=== PATIENT | female | born 1970 | race Caucasian/White ===

== ENCOUNTER 2025-02-14 09:03 | Outpatient (AMB) | payer OTHER, SELFPAY ==
--- NOTE | 2025-02-14 09:09 | MHC.PC.OV ---
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 Regenerator Operator Required: Yes Regenerator Operator Language: Urdu Accompanied by: Self / Same As Patient Allergies No Known Allergies Allergy (Verified 02/14/25 09:12) Tobacco use date assessed: 02/14/25 Dental Screening Dental Screen Date: 02/14/25 Did you have a dental visit in the last 12 months?: No Did you have a dental problem in the last 6 months where you did not have access to dental care?: No Was dental information given to patient?: No HPI HPI Comments History of Present Illness Details History of Present Illness The patient is a 54 year old female presenting with concerns of high blood pressure and heart pain. Cardiac Complaints: The patient reports long-standing concerns regarding her heart, including hypertension, heart pain, chest pain, and difficulty breathing. She experiences difficulty with exertion, such as walking, and reports that her heart races when she walks. She is on unspecified medications for her blood pressure and heart. A prior cardiac catheterization was reportedly normal, but she was told her heartbeats are not good. 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 Peripheral Artery Disease: Approximately four years ago, the patient underwent a scan of her legs and feet which reportedly revealed a blockage in the main artery. Following this finding, she was prescribed special shoes or socks. Chronic Musculoskeletal Pain: The patient has multiple chronic pain issues. She reports severe hand pain that disrupts her sleep. She has pain in both knees and hears cracks, consistent with osteoarthritis. She had a prior surgery on her right knee and was advised to have surgery on her left knee, which was not done due to insurance issues. She also has lower back pain, which has become more painful this year. Dizziness: The patient reports episodes of dizziness, which occur sometimes when she gets up or is going to sleep. These episodes are not associated with palpitations or shortness of breath. Surgical History: - Hysterectomy, approximately 3 years ago. - Right knee surgery. Medications: - Unspecified medication for blood pressure. - Unspecified medication for a heart condition. - she does not remember her medications Social History: - Tobacco use: Denies smoking. - Alcohol use: Denies drinking. - Illicit substance use: Denies drug use. - Sleep: Reports difficulty sleeping due to pain. Family History: No family history was discussed. Diagnostic Results: - Cardiac catheterization (past): Reported as normal. - Leg/foot scan (4 years ago): Showed a blocked main artery. Past Medical History - Hypertension, on medication. - Unspecified cardiac condition with arrhythmia, on medication. - Peripheral artery disease, diagnosed approximately 4 years ago. - Osteoarthritis of bilateral knees. - Chronic hand pain. - Chronic low back pain. - History of hysterectomy. - History of right knee surgery. - Denies prior hospitalizations. Health Maintenance - Mammogram: Last performed 3 months ago; patient reports she was instructed to get one every 6 months. - Cervical cancer screening: Not indicated due to history of hysterectomy. - Colon cancer screening: Patient has had a colonoscopy and reports she was told to repeat it every 5 years; she believes she is up to date. [facility] Medical History (Updated 02/14/25 @ 10:09 by Sudeep Silva MD) Knee crepitus Hypertension Chronic knee pain Osteoarthritis Dizziness Musculoskeletal pain PAD (peripheral artery disease) Cardiac complaint Screening for malignant neoplasm of cervix Surgical History (Updated 02/14/25 @ 10:09 by Sudeep Silva MD) H/O cardiac catheterization H/O: hysterectomy Social History Housing: Apartment Alcohol intake: never Patient Tobacco Use Status: Never used Tobacco e-Cigarette/Vaping Use: Never Used Second Hand Smoke Exposure: No service: No Current occupational status: unemployed Cognitive needs: No Hearing needs: No Vision needs: No Questionnaire Thrive Questionnaire Date Thrive assessed: 02/14/25 I am a: Patient What is your living situation today?: I have a steady place to live Within the past 12 months, did the food you bought not last and you didn't have the money to get more?: Sometimes True Within the past 12 months, did you worry whether your food would run out before you got money to buy more?: Sometimes True Do you have trouble paying for medicines?: Yes Do you have trouble getting transportation to medical appointments?: Yes Do you have trouble paying your heating and electricity bill?: Yes Do you have trouble taking care of your child, family member or friend?: Yes Do you have trouble with day-to-day activities such as bathing, preparing meals, shopping, managing finances, etc.?: Yes Are you currently unemployed and looking for a job?: Yes Are you interested in more education?: No Please select the resources that you would like help with: Food, Paying for medicine, Transportation, Utilities and Daily support Currently or been in a relationship where the following occur: I choose not to answer THRIVE Score: 4 AUDIT C Alcohol Use Questionnaire (AUDIT-C) 1. How often do you have a drink containing alcohol?: Never 3. How often do you have six or more drinks on one occasion?: Never Total Score: 0 FIDEL-7 AMB Questionnaire FIDEL-7 Date FIDEL - 7 assessed: 02/14/25 Feeling nervous, anxious, or on edge: 1 = Several days Not being able to stop or control worryin = More than half the days Worrying too much about different things: 2 = More than half the days Trouble relaxin = More than half the days Being so restless that it is hard to sit still: 2 = More than half the days Becoming easily annoyed or irritable: 1 = Several days Feeling afraid as if something awful might happen: 1 = Several days Total FIDEL-7 score (0-4 normal; 5-9 mild; 10-14 moderate; 15-21 severe): 11 Source: Developed by Drs. Martínez Rodriguez, Miryam Posada, Aki Elder and colleagues, with an educational diogo from [employer]. FIDEL-7 Assessment Billing FIDEL-7 Assessment Tool: FIDEL-7 Assessment 99610 Review of Systems Narrative Review of Systems - Cardiovascular: Reports chest pain and palpitations with exertion. Denies orthopnea. - Respiratory: Reports dyspnea with exertion such as walking. - Neurological: Reports dizziness on changing position. Denies history of seizure. - Musculoskeletal: Reports chronic pain in her hands, lower back, and bilateral knees. Reports sensation of cracks in her knees. - Constitutional: Reports insomnia due to pain. - Visual: Denies cataracts. 10-point ROS reviewed and negative except as noted in HPI Physical exam (Primary Care) Thrive Assessment: Date of Thrive Assessment Date Thrive assessed 02/14/25 02/14/25 09:13 Currently or been in a relationship where the following occur: I choose not to answer Narrative Physical Exam General: Well-appearing, in no acute distress. Vital signs: Within normal limits. HEENT: Normocephalic, atraumatic. PERRLA, EOMI. Conjunctiva clear, sclera anicteric. Oropharynx clear, mucous membranes moist. TMs intact bilaterally. Neck: Supple, no lymphadenopathy, no thyromegaly, no JVD or carotid bruits. Cardiovascular: RRR, normal S1/S2, no murmurs, rubs, or gallops. Peripheral pulses 2+ and symmetric. No edema. Reports history of tachycardia and heart pain. Respiratory: Lungs clear to auscultation bilaterally, no wheezes, rales, or rhonchi. Normal effort. Reports no difficulty breathing. Abdomen: Soft, non-tender, non-distended. Normoactive bowel sounds. No hepatosplenomegaly, no masses. MSK: Full range of motion, no joint swelling or deformity +crepitus bilat knees. Normal gait. Reports pain in right knee and left knee, with history of right knee surgery. Reports lower back pain. Skin: Warm, dry, intact. No rashes, lesions, or pallor. Neuro: Alert and oriented x3. Cranial nerves II-XII intact. Strength 5/5 throughout. Sensation intact. Reflexes 2+ symmetric. Normal coordination and gait. Reports dizziness upon standing or lying down. Psych: Appropriate mood and affect. Normal judgment and insight. Reports difficulty sleeping due to pain. Coding Level of Care Code New Pt Level 4 (50217) Add On Problem Visit Only Diagnoses Cardiac complaint R09.89 PAD (peripheral artery disease) I73.9 Musculoskeletal pain M79.18 Dizziness R42 Osteoarthritis M19.90 Chronic knee pain M25.569; G89.29 Hypertension I10 H/O cardiac catheterization Z98.890 Knee crepitus M23.8X9 Additional Codes FIDEL-7 Assessment Billing - FIDEL-7 Assessment Tool: FIDEL-7 Assessment 73195 ([id number]) Assessment & Plan Assessment & Plan (1) Cardiac complaint: Code(s): R09.89 - Other specified symptoms and signs involving the circulatory and respiratory systems Category: Medical (2) PAD (peripheral artery disease): Code(s): I73.9 - Peripheral vascular disease, unspecified Category: Medical (3) Musculoskeletal pain: Code(s): M79.18 - Myalgia, other site Category: Medical (4) Dizziness: Code(s): R42 - Dizziness and giddiness Category: Medical (5) Osteoarthritis: Code(s): M19.90 - Unspecified osteoarthritis, unspecified site Category: Medical (6) Chronic knee pain: Code(s): M25.569 - Pain in unspecified knee; G89.29 - Other chronic pain Category: Medical (7) Hypertension: Code(s): I10 - Essential (primary) hypertension Category: Medical (8) H/O cardiac catheterization: Code(s): Z98.890 - Other specified postprocedural states Category: Surgical (9) Knee crepitus: Code(s): M23.8X9 - Other internal derangements of unspecified knee Category: Medical Plan Consent No procedures requiring specific consent were performed or discussed during this visit. Consent for phlebotomy and laboratory analysis was implied as part of the diagnostic workup. Patient was informed and verbally consented to the use of an ambient scribe for clinic note documentation during this visit. Plan 1. New Patient Evaluation And Multiple Chronic Conditions - This is a new patient encounter to establish care. The patient presents with multiple poorly-defined chronic conditions, including cardiac complaints and widespread musculoskeletal pain. - Further evaluation and management of chronic conditions will be deferred until baseline data is collected. - Comprehensive laboratory studies have been ordered, including a CBC, CMP, lipids, thyroid function, B12, vitamin D, folate, hepatitis panel, HIV, and syphilis screen. - Office staff will request medical records from her previous providers in [place], [place], to obtain history on her cardiac and vascular conditions. - The patient will follow up in 2 weeks to review all lab results and any available medical records. Discussion Notes I explained to the patient that since this is our first encounter and she has a complex medical history without available records, the initial step will be to perform a comprehensive workup. I informed her that I would be ordering a full panel of blood tests to check her blood counts, liver function, kidney function, and other metabolic markers. I advised her that management of her chronic pain conditions would be deferred until these results are available to ensure any treatment prescribed is safe. I instructed her to provide my staff with the information for her previous doctors in [place] so that we can request her medical records. A follow-up visit was scheduled for two weeks to review all the results and establish a formal treatment plan. Patient Instructions - Please go to the laboratory to have your blood drawn for the ordered tests. - Provide our office staff with the contact details for your previous doctors in [place] so we can request your medical files. - Schedule a follow-up appointment at the checkout desk for two weeks from today. - We will discuss your test results and a plan for your chronic pain and other health issues at your next appointment. Medical Decision Making This is a 54-year-old female new to the practice who presents to establish care. She reports a complex and poorly documented history of multiple chronic conditions, including cardiac issues (hypertension, arrhythmia), possible peripheral artery disease, and widespread chronic musculoskeletal pain. Given the lack of available medical records during this initial visit, the primary goal is to gather objective data before initiating or modifying treatment. A comprehensive set of labs (CBC, CMP, lipids, thyroid, vitamins, infectious disease screen) was ordered to establish a baseline of her systemic health, particularly renal and hepatic function, which is crucial for safe prescribing. Management of her chronic pain is intentionally deferred pending review of these labs and her prior medical records to avoid potential harm. Obtaining records from her previous providers is critical to clarify her cardiac diagnoses (e.g., nature of arrhythmia, catheterization findings) and vascular history. A follow-up in two weeks is planned to synthesize this new information and formulate a comprehensive and safe care plan. Total Time Statement 30 min Total time spent caring for the patient today includes pre-visit chart review, documentation, review of laboratory and diagnostic imaging results, medication reconciliation, medically necessary evaluation, counseling on diagnoses, care coordination, ordering appropriate tests and medications, review of tests performed by other providers, reporting test results to the patient, and communication with other healthcare providers. Orders: Orders Complete Blood Count Auto Diff Today Z13.9 - Encounter for screening, unspecified TSH reflex Free T4 Today Z13.9 - Encounter for screening, unspecified Lipid Panel Today Z13.9 - Encounter for screening, unspecified Vitamin B12 and Folate Today Z13.9 - Encounter for screening, unspecified Vitamin D 25-OH (D2 and D3) Today Z13.9 - Encounter for screening, unspecified Hepatitis B Surface Antigen Today Z13.9 - Encounter for screening, unspecified Syphilis Screen Today Z13.9 - Encounter for screening, unspecified Comprehensive Met. Panel Today Z13.9 - Encounter for screening, unspecified Hepatitis C Antibody Today Z13.9 - Encounter for screening, unspecified HIV Ab/Ag Today Z13.9 - Encounter for screening, unspecified UA CC w/rflx Micro + Cult Today Z13.9 - Encounter for screening, unspecified Hemoglobin A1c Today Z13.9 - Encounter for screening, unspecified Magnesium Today Z13.9 - Encounter for screening, unspecified Hepatitis B Surface Antibody Today Z13.9 - Encounter for screening, unspecified
[2025-02-14 09:25] VITALS: BP 127/79; PULSE 76; RESP 16; TEMP 36.6; O2SAT 96; BMI 27.5
== END 2025-02-14 09:56 | disposition home or self-care (01) ==
PROVIDERS: PCP Student in an Organized Health Care Education/Training Program; Visit Provider Student in an Organized Health Care Education/Training Program
DX: R09.89 Other specified symptoms and signs involving the circulatory and respiratory systems (principal); I73.9 Peripheral vascular disease, unspecified; M79.18 Myalgia, other site; R42 Dizziness and giddiness; M19.90 Unspecified osteoarthritis, unspecified site; M25.569 Pain in unspecified knee; G89.29 Other chronic pain; I10 Essential (primary) hypertension; Z98.890 Other specified postprocedural states; M23.8X9 Other internal derangements of unspecified knee

== ENCOUNTER 2025-02-14 09:03 | Outpatient (REF) | payer OTHER, SELFPAY ==
[2025-02-14 14:20] LABS: Appearance Urine Cloudy; Glucose Urine UA Negative (Negative); MANUAL DIFF FLAG NO; PH 5.5 (5.0-9.0); Specific Gravity - Urine 1.020 (1.005-1.025); UMIC TRIGGER UACC YES
[2025-02-14 14:31] LABS: Hematocrit 40.9 % (37.0-47.0); Hemoglobin 12.7 g/dl (12.0-16.0); Imm Gran Abs Auto 0.02 X10*3/uL (0.00-0.03); Imm Gran Pct Auto 0.3 % (0.0-0.4); Lymphocytes Absolute Auto 2.2 X10*3/uL (1.2-4.9); Mean Corpuscular HGB Conc 31.1 g/dl (31.0-35.0); Mean Corpuscular Hemoglobin 22.2 pg (27.0-33.0); Mean Corpuscular Volume 71.5 fL (80.0-98.0); NRBC Abs Auto 0.000 X10*3/uL (0.0-0.012); NRBC Pct Auto 0.0 /100WBC (0.0-0.2); Platelet Count 244 X10*3/uL (160-400); Red Blood Count 5.72 X10*6/uL (4.20-5.50); White Blood Count 5.8 X10*3/uL (4.8-10.8)
[2025-02-14 14:58] LABS: Alanine Aminotransferase 51 U/L (0-31); Albumin Level 4.9 g/dL (3.5-5.0); Alkaline Phosphatase 76 U/L (39-117); Anion Gap 12 (12-20); Aspartate Amino Transferase 35 U/L (5-31); Blood Urea Nitrogen 11 mg/dL (9-16); Calcium 9.5 mg/dL (8.4-10.2); Carbon Dioxide 26 mmol/L (22-29); Chloride 104 mmol/L (96-108); Cholesterol 274 mg/dL (<200); Estimated Glomerular Filt Rate > 60; HDL Cholesterol 44 mg/dL (>40); Magnesium 2.3 mg/dL (1.6-2.6); Potassium 4.0 mmol/L (3.3-5.1); Sodium 138 mmol/L (135-145); Total Protein 8.2 g/dL (6.5-8.0); Triglycerides 174 mg/dL (<150)
[2025-02-14 15:19] LABS: Folate 12.6 ng/mL (> or = 4.0); Vitamin B12 364 pg/mL (200-900)
[2025-02-15 08:25] LABS: HBS Num1 0.00 mIU/mL (0-7.99); HBsAGNum1 0.47 S/CO (0.00-0.99); HIV Num 1 0.04 S/CO (0.00-0.99); Hepatitis B Surface Antigen Negative (Negative); ~HepC Num1 0.19 S/CO (0.00-0.79); ~Hepatitis B Surface Antibody NONREACTIVE (Nonreactive); ~Hepatitis C Antibody Nonreactive (Nonreactive)
[2025-02-15 08:44] LABS: Syphilis Screen Nonreactive (Nonreactive)
[2025-02-18 13:14] LABS: Vitamin D 25-OH, D2 <4 ng/mL; Vitamin D 25-OH, D3 33 ng/mL; Vitamin D 25-OH, Total 33 ng/mL (30-100)
== END 2025-02-14 09:04 | disposition home or self-care (01) ==
LOC: HO.HKASLDS 09:03
PROVIDERS: PCP Student in an Organized Health Care Education/Training Program; Visit Provider Student in an Organized Health Care Education/Training Program
DX: R09.89 Other specified symptoms and signs involving the circulatory and respiratory systems (principal); Z13.9 Encounter for screening, unspecified; I73.9 Peripheral vascular disease, unspecified; M79.18 Myalgia, other site; R42 Dizziness and giddiness; M19.90 Unspecified osteoarthritis, unspecified site; M25.569 Pain in unspecified knee; G89.29 Other chronic pain; I10 Essential (primary) hypertension; M23.8X9 Other internal derangements of unspecified knee; Z98.890 Other specified postprocedural states
CPT/HCPCS: 36415; 80053; 80061; 81001; 82306; 82607; 82746; 83036; 83735; 84443; 85025; 86706; 86780; 86803; 87340; 87389